=== PATIENT | female | born 2000 | race Two or more races ===

== ENCOUNTER → 2024-04-04 | Outpatient (CLI) | payer OTHER ==
[2024-04-05 07:07] LABS: MUMPS VIRUS IGG ANTIBODY <9.0 AU/mL (Immune >10.9); RUBELLA AB IGG-REFLAB 1.24 index (Immune >0.99); RUBEOLA (MEASLES) IGG 25.3 AU/mL (Immune >16.4); VARICELLA ZOSTER IGG AB TITER Non Reactive (Non Reactive)
== END | disposition home or self-care (01) ==
LOC: LABMN 11:41
PROVIDERS: ATTEND Internal Medicine
DX: Z02.1 Encounter for pre-employment examination (principal)
CPT/HCPCS: 86706; 86735; 86762; 86765; 86787